=== PATIENT | male | born 1975 | race Caucasian/White ===

== ENCOUNTER 2025-03-13 13:39 | Outpatient (CLI) | payer OTHER, SELFPAY ==
--- NOTE | 2025-03-13 13:47 | XRR_ITS ---
PROCEDURE INFORMATION: Exam: XR Right Knee Exam date and time: 03/13/2025 1:57 PM Age: 50 years old Clinical indication: Right; Chronic pain in RT knee, limited rom. ; Additional info: R knee pain TECHNIQUE: Imaging protocol: Radiologic exam of the right knee. Views: 3 views. COMPARISON: No relevant prior studies available. FINDINGS: Bones/joints: No acute fracture or dislocation. Diffuse osseous demineralization. Soft tissues: Normal. XR/XR knee RT 3V* [id number] IMPRESSION: No acute fracture or dislocation.
== END 2025-03-13 13:40 | disposition home or self-care (01) ==
LOC: RAD 13:43
PROVIDERS: Visit Provider Nurse Practitioner Family
DX: M25.561 Pain in right knee (principal)
CPT/HCPCS: 73562